=== PATIENT | male | born 1960 | race Caucasian/White ===

== ENCOUNTER 2021-08-19 10:11 | Outpatient (CLI) | payer MEDICARE, MEDICAID ==
[2021-08-19 11:13] LABS: BASOPHILS # (AUTO) 0.1 X10'3 (0-0.2); BASOPHILS % (AUTO) 1.8 % (0-1); EOSINOPHILS # (AUTO) 0.1 X10'3 (0-0.9); HEMATOCRIT 42.2 % (42.0-52.0); HEMOGLOBIN 14.7 g/dl (14.0-17.9); LYMPHOCYTES # (AUTO) 1.4 X10'3 (1.1-4.8); LYMPHOCYTES % (AUTO) 26.6 % (21-51); MEAN CORPUSCULAR HEMOGLOBIN 34.2 PG (27.0-31.0); MEAN CORPUSCULAR HGB CONC 34.9 g/dL (33.0-36.5); MEAN PLATELET VOLUME 7.6 FL (7.4-10.4); MONOCYTES # (AUTO) 0.6 X10'3 (0-0.9); MONOCYTES % (AUTO) 10.7 % (2-12); NEUTROPHILS # (AUTO) 3.2 X10'3 (1.8-7.7); NEUTROPHILS % (AUTO) 59.9 % (42-75); PLATELET COUNT 245 X10'3 (140-440); RED BLOOD COUNT 4.31 X10'6 (4.70-6.10); RED CELL DISTRIBUTION WIDTH 13.6 % (11.5-14.5); WHITE BLOOD COUNT 5.4 X10'3 (4.5-11.0)
[2021-08-19 11:18] LABS: APTT 33 SECONDS (22-32)
[2021-08-19 11:20] LABS: ALANINE AMINOTRANSFERASE 39 U/L (12-78); ALBUMIN 4.2 G/DL (3.4-5.0); ALBUMIN/GLOBULIN RATIO 1.1 (1.1-1.5); ALKALINE PHOSPHATASE 62 IU/L (46-116); ANION GAP 9 (8-16); ASPARTATE AMINO TRANSFERASE 31 U/L (10-37); BILIRUBIN,TOTAL 0.8 MG/DL (0.1-1.0); BLOOD UREA NITROGEN 14 MG/DL (7-18); BUN/CREATININE RATIO 9.3 (5.4-32.0); CALCIUM 9.2 MG/DL (8.5-10.1); CHLORIDE 104 MMOL/L (99-107); GLUCOSE 93 MG/DL (70-104); POTASSIUM 4.2 MMOL/L (3.5-5.1); SODIUM 137 MMOL/L (135-145); TOTAL CARBON DIOXIDE 24.1 MMOL/L (24-32); eGFR 48 ML/MIN
[2021-10-03] MEDS ORDERED: DULO30CA52 PO (10:15)
[2021-10-03] MEDS ORDERED: FENO134C21 PO (10:15)
[2021-10-03] MEDS ORDERED: FURO-149 PO (10:15)
[2021-10-03] MEDS ORDERED: APIX5TAB3 PO (10:15)
[2021-10-03] MEDS ORDERED: METF-436 PO (10:15)
[2021-10-03] MEDS ORDERED: AMIO200T27 PO (10:15)
[2021-10-03] MEDS ORDERED: AMLO10TA28 PO (10:15)
[2021-10-03] MEDS ORDERED: ROSU40TA PO (10:15)
[2021-10-03] MEDS ORDERED: [UNRECOGNIZED DRUG - OTHER] (10:15)
[2021-10-03] MEDS ORDERED: METO100T7 PO (10:15)
[2021-10-03] MEDS ORDERED: LOSA25TA96 PO (10:15)
[2021-10-03] MEDS ORDERED: EZET10TA6 PO (10:15)
[2021-10-03] MEDS ORDERED: HYDR-3965 PO (10:15)
[2021-10-05] MEDS ORDERED: IBUP-24 PO (11:57)
[2021-10-06] MEDS ORDERED: AMLO5TAB16 PO (11:21)
== END 2021-08-19 23:59 | disposition home or self-care (01) ==
LOC: VAS 10:11
PROVIDERS: ATTEND Internal Medicine Cardiovascular Disease
DX: Z01.818 Encounter for other preprocedural examination (principal); I65.23 Occlusion and stenosis of bilateral carotid arteries; N28.89 Other specified disorders of kidney and ureter; I51.7 Cardiomegaly; I72.2 Aneurysm of renal artery; I70.0 Atherosclerosis of aorta; Z87.891 Personal history of nicotine dependence
CPT/HCPCS: 36415; 71046; 71275; 74174; 80053; 85025; 85610; 85730; 93880; 94010; 94727; 94729

== ENCOUNTER 2021-11-03 14:17 | Outpatient (CLI) | payer MEDICARE, MEDICAID ==
[~2021-11-03] VITALS: Ht 177.8 cm; Wt 167.8 kg
[~2021-11-03 14:17] MED LIST: AMIO200T27 PO; AMLO5TAB16 PO; APIX5TAB3 PO; DULO30CA52 PO; EZET10TA6 PO; FENO134C21 PO; FURO-149 PO; HYDR-3965 PO; LOSA25TA96 PO; METO100T7 PO; ROSU40TA PO
[2021-11-03 16:14] VITALS: BP 166/93
--- NOTE | 2021-11-03 16:15 | NUR ---
Patient was seen today for TAVR follow-up with Dr. Perry Giles and Dr. Metzger. [facility]. Walk test completed. Vital signs measured. Echo and EKG reviewed with patient along with current condition of patients symptoms.
== END 2021-11-03 23:59 | disposition home or self-care (01) ==
LOC: RAD 14:17
PROVIDERS: ATTEND Internal Medicine Cardiovascular Disease
DX: I08.8 Other rheumatic multiple valve diseases (principal); R00.1 Bradycardia, unspecified; I44.7 Left bundle-branch block, unspecified; Z48.812 Encounter for surgical aftercare following surgery on the circulatory system; Z95.2 Presence of prosthetic heart valve
CPT/HCPCS: 93005; 93306